=== PATIENT | male | born 2000 | race Caucasian/White ===

== ENCOUNTER 2019-11-13 14:12 | Emergency (ER) | payer OTHER ==
[2019-11-13] MEDS ORDERED: METOCLOPRAMIDE 10 MG/2mL INJ ONE (15:14)
[2019-11-13] MEDS ORDERED: NA CHLORIDE 0.9% 100 ML IV ONE (15:14)
[2019-11-13] MEDS ORDERED: DIPHENHYDRAMINE 50 MG/ML VIAL ONE (15:14)
--- NOTE | 2019-11-13 15:21 | RAD REPORT ---
EXAM DESCRIPTION: CT - Head Brain Wo Cont - 11/13/2019 3:09 pm CLINICAL HISTORY: headache COMPARISON: None TECHNIQUE: Computed axial tomography of the head was obtained. IV contrast was not requested. All CT scans are performed using dose optimization technique as appropriate and may include automated exposure control or mA/KV adjustment according to patient size. FINDINGS: An intracranial bleed is not seen . The ventricles are normal in caliber. No extra-axial fluid collection is noted. Fluid within the sinuses/ mastoids is not seen. IMPRESSION: No acute intracranial abnormality is seen. If patient's symptoms persist MRI of the bra in would be recommended.
--- NOTE | 2019-11-13 15:38 | ER ---
Nurse's Notes [facility] Name: Andres Antonio Age: 19 yrs Sex: Male : 2000 Arrival Date: 11/13/2019 Time: 14:17 Bed 14 Private MD: Diagnosis: Migraine without aura, intractable, with status migrainosus Presentation: 11/12 14:30 Chief complaint: Patient states: MCGREGOR x a month and a half with light and noise jl7 sensitivity, N/V started yesterday, denies fever, denies new cough. Coronavirus screen: Patient denies fever greater than 100.4F, cough, shortness of breath, or difficulty breathing. Proceed with normal triage process. Ebola Screen: No symptoms or risks identified at this time. Initial Sepsis Screen: Does the patient meet any 2 criteria? No. Patient's initial sepsis screen is negative. Does the patient have a suspected source of infection? No. Patient's initial sepsis screen is negative. Risk Assessment: Do you want to hurt yourself or someone else? Patient reports no desire to harm self or others. Onset of symptoms was October 13, 2019. Care prior to arrival: None. 14:30 Method Of Arrival: Ambulatory [facility] 14:30 Acuity: RAFFY 3 jl7 Triage Assessment: 14:32 Headache History: Denies prior headaches. General: Appears in no apparent distress. jl7 uncomfortable, Behavior is calm, cooperative. Pain: Complains of pain in MCGREGOR Pain does not radiate. Pain currently is 7 out of 10 on a pain scale. Pain began 1 month ago Is continuous, Also complains of nausea, photophobia. Neuro: Level of Consciousness is awake, alert, obeys commands, Oriented to person, place, time, situation, Gait is steady, Speech is normal. Cardiovascular: Patient's skin is warm and dry. Respiratory: Airway is patent Respiratory effort is even, unlabored, Respiratory pattern is regular, symmetrical. GI: Reports nausea, vomiting. Derm: Skin is. Historical: - Allergies: 14:32 No Known Allergies; jl7 - Home Meds: 14:32 None [Active]; jl7 - PMHx: 14:32 None; jl7 - PSHx: 14:32 None; jl7 - Immunization history:: Adult Immunizations unknown. - Social history:: Smoking status: Patient reports the use of cigarette tobacco products, smokes one-half pack cigarettes per day. Screenin:30 Abuse screen: Denies threats or abuse. Denies injuries from another. Nutritional jl7 screening: No deficits noted. Tuberculosis screening: No symptoms or risk factors identified. Fall Risk IV access (20 points). Total Garner Fall Scale indicates No Risk (0-24 pts). Assessment: 14:35 General: See triage assessment. jl7 15:30 Reassessment: Patient appears in no apparent distress at this time. Patient and/or jl7 family updated on plan of care and expected duration. Pain level reassessed. Patient is alert, oriented x 3, equal unlabored respirations, skin warm/dry/pink. Patient states feeling better. Patient states symptoms have improved. Pain: Complains of pain in MCGREGOR Pain currently is 2 out of 10 on a pain scale. GI: Patient currently denies nausea. Vital Signs: 14:30 BP 143 / 92; Pulse 75; Resp 17; Temp 98.8; Pulse Ox 100% ; Weight 97.52 kg; Pain 8/10; jl7 15:30 BP 139 / 89; Pulse 74; Resp 16 S; Pulse Ox 100% on R/A; jl7 ED Course: 14:17 Patient arrived in ED. ag5 14:23 Misty Fuller, JEAN-CLAUDE is Primary Nurse. jl7 14:25 Nico Andrea PA is PHCP. jr8 14:25 Newton Gonzalez MD is Attending Physician. jr8 14:32 Triage completed. jl7 14:32 Arm band placed on right wrist. jl7 14:35 Patient has correct armband on for positive identification. Bed in low position. Call jl7 light in reach. Side rails up X 1. Pulse ox on. NIBP on. 15:00 Inserted saline lock: 22 gauge in right antecubital area, using aseptic technique. jl7 Blood collected. 15:09 CT Head Brain wo Cont In Process Unspecified. EDMS 15:09 CT completed. Patient tolerated procedure well. Patient moved back from CT. bq 15:37 Kal Wilder MD is Referral Physician. jr8 15:52 No provider procedures requiring assistance completed. IV discontinued, intact, jl7 bleeding controlled, No redness/swelling at site. Pressure dressing applied. Administered Medications: 15:13 Drug: Benadryl 25 mg Route: IVP; Site: right antecubital; jl7 15:30 Follow up: Response: No adverse reaction; Pain is decreased jl7 15:19 Drug: Reglan 10 mg Route: IVP; Site: right antecubital; jl7 15:30 Follow up: Response: No adverse reaction; Nausea is decreased jl7 Outcome: 15:37 Discharge ordered by . rick 15:52 Discharged to home ambulatory. jl7 15:52 Condition: stable 15:52 Discharge instructions given to patient, Instructed on discharge instructions, follow up and referral plans. Demonstrated understanding of instructions, follow-up care. 15:52 Patient left the ED. jl7 Signatures: Dispatcher [employer] EDMS Mihaela Valdovinos Josh, PA PA jr8 Misty Fuller RN RN jl7 Osei Anders ag5
--- NOTE | 2019-11-13 15:38 | EDPHYS ---
Physician Documentation [facility] Name: Andres Antonio Age: 19 yrs Sex: Male : 2000 Arrival Date: 11/13/2019 Time: 14:17 Bed 14 Private MD: ED Physician Newton Gonzalez HPI: 11/12 15:08 This 19 yrs old Male presents to ER via Ambulatory with complaints of jr8 Vomiting, Headache. 15:08 The patient complains of pain to the diffuse. The patient describes the headache as jr8 throbbing. Onset: The symptoms/episode began/occurred gradually, 1 month(s) ago. The patient presents to the emergency department with nausea, vomiting. Possible causes: unknown. The symptoms are aggravated by nothing. The symptoms are alleviated by nothing. Associated signs and symptoms: The patient has no apparent associated signs or symptoms. Severity of symptoms: At its worst the pain was moderate. Headache History: Denies prior headaches. The patient has not experienced similar symptoms in the past. Patient stated that he has had a headache for over a month now and still without relief with OTC medications. Started to vomit secondary to it. Cannot take pain any longer . Historical: - Allergies: 14:32 No Known Allergies; jl7 - Home Meds: 14:32 None [Active]; jl7 - PMHx: 14:32 None; jl7 - PSHx: 14:32 None; jl7 - Immunization history:: Adult Immunizations unknown. - Social history:: Smoking status: Patient reports the use of cigarette tobacco products, smokes one-half pack cigarettes per day. ROS: 15:29 Eyes: Negative for injury, pain, redness, and discharge, ENT: Negative for injury, jr8 pain, and discharge, Neck: Negative for injury, pain, and swelling, Cardiovascular: Negative for chest pain, palpitations, and edema, Respiratory: Negative for shortness of breath, cough, wheezing, and pleuritic chest pain, Back: Negative for injury and pain, MS/Extremity: Negative for injury and deformity, Skin: Negative for injury, rash, and discoloration. 15:29 Abdomen/GI: Positive for nausea and vomiting, Negative for abdominal pain, diarrhea, constipation, abdominal cramps, abdominal distension. 15:29 Neuro: Positive for headache. Exam: 15:29 Eyes: Pupils equal round and reactive to light, extra-ocular motions intact. Lids and jr8 lashes normal. Conjunctiva and sclera are non-icteric and not injected. Cornea within normal limits. Periorbital areas with no swelling, redness, or edema. ENT: Nares patent. No nasal discharge, no septal abnormalities noted. Tympanic membranes are normal and external auditory canals are clear. Oropharynx with no redness, swelling, or masses, exudates, or evidence of obstruction, uvula midline. Mucous membranes moist. Neck: Trachea midline, no thyromegaly or masses palpated, and no cervical lymphadenopathy. Supple, full range of motion without nuchal rigidity, or vertebral point tenderness. No Meningismus. Cardiovascular: Regular rate and rhythm with a normal S1 and S2. No gallops, murmurs, or rubs. Normal PMI, no JVD. No pulse deficits. Respiratory: Lungs have equal breath sounds bilaterally, clear to auscultation and percussion. No rales, rhonchi or wheezes noted. No increased work of breathing, no retractions or nasal flaring. Abdomen/GI: Soft, non-tender, with normal bowel sounds. No distension or tympany. No guarding or rebound. No evidence of tenderness throughout. Back: No spinal tenderness. No costovertebral tenderness. Full range of motion. Skin: Warm, dry with normal turgor. Normal color with no rashes, no lesions, and no evidence of cellulitis. MS/ Extremity: Pulses equal, no cyanosis. Neurovascular intact. Full, normal range of motion. Neuro: Awake and alert, GCS 15, oriented to person, place, time, and situation. Cranial nerves II-XII grossly intact. Motor strength 5/5 in all extremities. Sensory grossly intact. Cerebellar exam normal. Normal gait. Vital Signs: 14:30 BP 143 / 92; Pulse 75; Resp 17; Temp 98.8; Pulse Ox 100% ; Weight 97.52 kg; Pain 8/10; jl7 15:30 BP 139 / 89; Pulse 74; Resp 16 S; Pulse Ox 100% on R/A; jl7 MDM: 14:53 Patient medically screened. jr8 15:37 Data reviewed: vital signs, nurses notes, radiologic studies, CT scan, and as a result, jr8 I will discharge patient. Data interpreted: Pulse oximetry: on room air is 100 %. Interpretation: normal. Counseling: I had a detailed discussion with the patient and/or guardian regarding: the historical points, exam findings, and any diagnostic results supporting the discharge/admit diagnosis, radiology results, the need for outpatient follow up, a family practitioner, a neurologist, to return to the emergency department if symptoms worsen or persist or if there are any questions or concerns that arise at home. Response to treatment: the patient's symptoms have markedly improved after treatment. 11/12 14:25 Order name: Influenza Screen (a \T\ B); Complete Time: 15:08 [facility] 11/12 14:25 Order name: Strep; Complete Time: 15:08 [facility] 11/12 14:49 Order name: CT Head Brain wo Cont; Complete Time: 15:29 [facility] 11/12 15:08 Order name: Throat Culture [facility] 11/12 14:49 Order name: IV; Complete Time: 15:22 jr8 Administered Medications: 15:13 Drug: Benadryl 25 mg Route: IVP; Site: right antecubital; jl7 15:30 Follow up: Response: No adverse reaction; Pain is decreased jl7 15:19 Drug: Reglan 10 mg Route: IVP; Site: right antecubital; jl7 15:30 Follow up: Response: No adverse reaction; Nausea is decreased jl7 Disposition: 17:22 Co-signature as Attending Physician, Newton Gonzalez MD. rn Disposition: 11/13/19 15:37 Discharged to Home. Impression: Migraine without aura, intractable, with status migrainosus. - Condition is Stable. - Discharge Instructions: Migraine Headache. - Medication Reconciliation Form, Thank You Letter, Antibiotic Education, Prescription Opioid Use, Work release form form. - Follow up: Kal Wilder MD; When: 1 week; Reason: Recheck today's complaints, Continuance of care, Re-evaluation by your physician. - Problem is new. - Symptoms have improved. Signatures: Dispatcher [employer] [facility] Newton Gonzalez MD MD rn Roszak, Josh, PA PA jr8 Misty Fuller RN RN jl7 Corrections: (The following items were deleted from the chart) 14:48 14:26 Chest Single View+RAD.[email or web address].BRZ ordered. [facility] 15:52 15:37 11/13/2019 15:37 Discharged to Home. Impression: Migraine without aura, jl7 intractable, with status migrainosus. Condition is Stable. Forms are Medication Reconciliation Form, Thank You Letter, Antibiotic Education, Prescription Opioid Use. Follow up: Kal Wilder; When: 1 week; Reason: Recheck today's complaints, Continuance of care, Re-evaluation by your physician. Problem is new. Symptoms have improved. jr8
[2019-11-13 16:08] VITALS: BP 139/89; O2SAT 100
[2019-11-13 16:09] VITALS: TEMP 98.8
== END 2019-11-13 15:52 | disposition home or self-care (01) ==
LOC: ER 14:12
DX: G43.011 Migraine without aura, intractable, with status migrainosus (principal); F17.210 Nicotine dependence, cigarettes, uncomplicated
CPT/HCPCS: 87070; 87081; 87804 ×2; 70450; 96375; 96374; 99284; J2765; J1200